=== PATIENT | male | born 1940 | race Caucasian/White ===

== ENCOUNTER → 2018-09-17 | Outpatient (CLI) | payer MEDICARE, OTHER ==
[~2018-09-17] MED LIST: ASPI-496 PO; CHOL10003 PO; GLIP5TAB10 PO; LISI5TAB7 PO; METF500T17 PO; SIMV40TA3 PO
[2018-09-17 10:01] LABS: MICROSCOPIC AUTO
[2018-09-17 10:09] LABS: ALANINE AMINOTRANSFERASE 21 U/L (12-78); ALBUMIN 3.9 g/dL (3.4-5.0); ANION GAP 5 mmol/L (5-15); CALCIUM 8.8 mg/dL (8.5-10.1); CHLORIDE 103 mmol/L (98-107)
[2018-09-17 10:12] LABS: ALKALINE PHOSPHATASE 59 U/L (45-117); BILIRUBIN,TOTAL 0.3 mg/dL (0.2-1.0); CREATININE 1.02 mg/dL (0.7-1.3); TOTAL PROTEIN 7.2 g/dL (6.4-8.2)
== END | disposition home or self-care (01) ==
LOC: STAR 08:31
PROVIDERS: ATTEND Urology
DX: N35.013 Post-traumatic anterior urethral stricture (principal); I44.4 Left anterior fascicular block
CPT/HCPCS: 36415; 80053; 81001; 87077; 87086; 93005